=== PATIENT | female | born 1985 | race Caucasian/White ===

== ENCOUNTER 2023-04-14 21:09 | Emergency (ER) | payer MEDICAID ==
[~2023-04-14] VITALS: Ht 149.9 cm; Wt 79.0 kg
[2023-04-14 21:14] VITALS: BP 147/72
[2023-04-14] MEDS ORDERED: LORazepam 1 MG tablet PO ONE (22:00)
[2023-04-14] MEDS ORDERED: HYDR-3686 PO (22:07)
== END 2023-04-14 22:12 | disposition home or self-care (01) ==
LOC: ER 21:10
DX: F41.9 Anxiety disorder, unspecified (principal); Z88.0 Allergy status to penicillin; Z79.899 Other long term (current) drug therapy
CPT/HCPCS: 99283